=== PATIENT | male | born 1970 | race Two or more races ===

== ENCOUNTER 2020-11-26 18:18 | Emergency (ER) | payer MEDICAID, OTHER ==
[~2020-11-26] VITALS: Ht 182.9 cm; Wt 99.3 kg
[2020-11-26 19:09] LABS: Basophils # (auto) 0.1 10 ^3/uL (0-0.2); Basophils % (auto) 0.9 % (0.0-2.0); Eosinophils # (auto) 0.5 10 ^3/uL (0-0.8); Eosinophils % (auto) 4.8 % (0.0-7.0); Hematocrit 43.8 % (41.0-53.0); Hemoglobin 15.5 g/dL (13.5-17.5); Lymphocytes # (auto) 1.7 10 ^3/uL (0.4-5.4); Lymphocytes % (auto) 15.8 % (10.0-50.0); Mean Corpuscular Hemoglobin 27.3 pg (28.0-32.0); Mean Corpuscular Hgb Conc. 35.3 g/dL (32.0-36.0); Mean Corpuscular Volume 77.4 fL (80.0-100.0); Monocytes # (auto) 0.6 10 ^3/uL (0-1.3); Monocytes % (auto) 5.9 % (0.0-12.0); Neutrophils % (auto) 72.6 % (37.0-80.0); Nucleated Red Blood Cells % 0.1 %; Platelet Count (auto) 266 10^3/uL (140-450); Red Blood Cells 5.66 10^6/uL (4.5-5.90); Red Cell Distribution Width 15.9 % (11.8-14.3)
[2020-11-26 19:26] LABS: Alanine Aminotransferase 41 U/L (16-61); Albumin 4.2 g/dL (3.4-5.0); Anion Gap 8 (5-15); Aspartate Aminotransferase 15 U/L (15-37); BUN/Creatinine Ratio 14.5; Blood Urea Nitrogen 11 mg/dL (7-18); Calcium 8.9 mg/dL (8.5-10.1); Carbon Dioxide 27 mmol/L (21-32); Chloride 103 mmol/L (98-107); GFR African American 141 mL/min; GFR Non-African American 116 mL/min; Glucose 157 mg/dL (74-106); Potassium 3.3 mmol/L (3.5-5.1); Sodium 138 mmol/L (136-145)
[2020-11-26 19:31] LABS: Alkaline Phosphatase 76 U/L (45-117); Bilirubin, Total 0.5 mg/dL (0.2-1.0); Total Protein 7.8 g/dL (6.4-8.2)
[2020-11-26 23:37] VITALS: BP 185/101
[2020-11-26] MEDS ORDERED: amLODIPine BESYLATE 5 MG TAB PO ONE (23:45)
== END 2020-11-26 23:25 | disposition home or self-care (01) ==
LOC: ER 18:19
DX: I10 Essential (primary) hypertension (principal); E87.6 Hypokalemia; E11.9 Type 2 diabetes mellitus without complications
CPT/HCPCS: 36415; 80053; 84484; 85025; 93005

== ENCOUNTER 2022-09-12 15:43 | Emergency (ER) | payer MEDICAID ==
[~2022-09-12] VITALS: Ht 182.9 cm; Wt 87.0 kg
[2022-09-12 16:18] LABS: Basophils # (auto) 0.1 10 ^3/uL (0-0.2); Basophils % (auto) 0.5 % (0.0-2.0); Eosinophils # (auto) 0.2 10 ^3/uL (0-0.8); Eosinophils % (auto) 1.4 % (0.0-7.0); Hematocrit 42.9 % (41.0-53.0); Hemoglobin 14.7 g/dL (13.5-17.5); Lymphocytes # (auto) 1.3 10 ^3/uL (0.4-5.4); Lymphocytes % (auto) 8.3 % (10.0-50.0); Mean Corpuscular Hemoglobin 27.5 pg (28.0-32.0); Mean Corpuscular Hgb Conc. 34.2 g/dL (32.0-36.0); Mean Corpuscular Volume 80.5 fL (80.0-100.0); Monocytes # (auto) 1.4 10 ^3/uL (0-1.3); Monocytes % (auto) 8.9 % (0.0-12.0); Neutrophils # (auto) 12.4 10 ^3/uL (1.6-8.6); Neutrophils % (auto) 80.9 % (37.0-80.0); Red Blood Cells 5.33 10^6/uL (4.5-5.90); Red Cell Distribution Width 13.8 % (11.8-14.3); White Blood Cell 15.4 10^3/uL (4.4-10.8)
[2022-09-12 16:30] LABS: INR 1.03 (0.9-1.15); Partial Thromboplastin Time 29.9 sec (24.6-33.4)
[2022-09-12 16:31] LABS: Albumin 3.9 g/dL (3.4-5.0); BUN/Creatinine Ratio 14.9; Calcium 9.9 mg/dL (8.5-10.1); Potassium 3.4 mmol/L (3.5-5.1)
[2022-09-12 16:34] LABS: Bilirubin, Total 0.9 mg/dL (0.2-1.0); Total Protein 7.8 g/dL (6.4-8.2)
[2022-09-12] MEDS ORDERED: cloNIDine HCL 0.1 MG TAB PO ONE (18:45)
[2022-09-12] MEDS ORDERED: ACETAMINOPHEN 325 MG TAB PO ONE (18:45)
[2022-09-12] MEDS ORDERED: AZITHROMYCIN 250 MG TAB PO ONE (18:45)
[2022-09-12] MEDS ORDERED: SODIUM CHLORIDE 0.9% 500 ML IV ONE (19:30)
[2022-09-12] MEDS ORDERED: IOHEXOL 350 MG/ML 100ML IJ ONE ×2 (20:09→20:43)
[2022-09-12] MEDS ORDERED: AZIT250T9 PO (22:47)
[2022-09-12 23:10] VITALS: BP 134/77
== END 2022-09-12 23:05 | disposition home or self-care (01) ==
LOC: ER 15:43
DX: J40 Bronchitis, not specified as acute or chronic (principal); R09.1 Pleurisy; D72.829 Elevated white blood cell count, unspecified; I10 Essential (primary) hypertension; E11.9 Type 2 diabetes mellitus without complications; E78.5 Hyperlipidemia, unspecified
CPT/HCPCS: 36415; 71045; 71275; 80053; 84484; 85025; 85379; 85610; 85730; 87040; 93005; 96360; 99285; J7040; Q9967